=== PATIENT | male | born 1985 | race Caucasian/White ===

== ENCOUNTER 2024-12-08 12:34 | Emergency (ER) | payer SELFPAY ==
[2024-12-08] MEDS: Fluorescein 1 MG Ophth Strip EYELF ONE (12:49)
[2024-12-08] MEDS: Tetracaine HCl/PF 0.5% 4 ML Bottle EYELF ONE (12:49)
== END 2024-12-08 13:11 | disposition home or self-care (01) ==
LOC: VM.ED 12:34
DX: H10.32 Unspecified acute conjunctivitis, left eye (principal)
CPT/HCPCS: 99282; J3490